=== PATIENT | female | born 1990 | race African-American/Black ===

== ENCOUNTER 2019-08-20 13:07 | Emergency (ER) | payer BC ==
[~2019-08-20] VITALS: Ht 162.6 cm; Wt 86.2 kg
[~2019-08-20 13:07] MED LIST: APAP500 PO; DERMOPLAST SPRA56 ML; IBUPROFEN 600600 M1 PO; IBUPROFEN 800800 M1 PO; LANOLIN56 GM; LOCOID 0.1% CRE15 GM TP; NAPROSYN500 MG PO; NOHOMEMEDICATIONS; PNV PO; PRENATAL PO; TUCKS MEDICATE1 EAC1; ZOFRAN ODT4 MG PO
[2019-08-20 13:12] VITALS: BP 132/91
[2019-08-20 13:20] LABS: URINE BLOOD NEGATIVE (Negative); URINE CLARITY CLEAR; URINE COLOR YELLOW; URINE GLUCOSE-RANDOM* NEGATIVE (Negative); URINE KETONES 3+ (Negative); URINE LEUKOCYTES-REFLEX NEGATIVE (Negative); URINE NITRITE-REFLEX NEGATIVE (Negative); URINE PROTEIN (DIPSTICK) 1+ (Negative); URINE SPECIFIC GRAVITY >= 1.030 (1.005-1.035); URINE UROBILINOGEN 0.2 E.U./dl (0.2-1.0)
[2019-08-20 13:24] LABS: ICTOTEST (BILI CONFIRMATORY) Negative (Negative); URINE BILIRUBIN NEGATIVE (Negative)
[2019-08-20 13:26] LABS: URINE REDUCING SUBSTANCE NEGATIVE
[2019-08-20 13:32] LABS: BACTERIA-REFLEX 1-9 Few /HPF (None Seen); MUCUS >6 Heavy strn/LPF (None Seen); SQUAMOUS 4-10 Moderate /LPF (0-3); URINE RBC None Seen /HPF (0-2); URINE WBC-REFLEX 0-5 Rare /HPF (0-5)
[2019-08-20 13:33] LABS: CASTS None Seen /LPF (None Seen); CRYSTALS None Seen /LPF (None Seen)
[2019-08-20] MEDS ORDERED: KEFLEX500 M1 PO (14:31)
== END 2019-08-20 15:03 | disposition home or self-care (01) ==
LOC: ER 13:07
PROVIDERS: Physician Assistant
DX: O23.41 Unspecified infection of urinary tract in pregnancy, first trimester (principal); Z3A.01 Less than 8 weeks gestation of pregnancy; Z11.3 Encounter for screening for infections with a predominantly sexual mode of transmission